=== PATIENT | female | born 1960 | race Caucasian/White ===

== ENCOUNTER 2016-09-26 17:07 | Emergency (ER) | payer SELFPAY ==
[2016-09-26 17:53] LABS: CHLORIDE,CL 106 mmol/L (98-107); SODIUM,NA 142 mmol/L (136-145)
[2016-09-26 18:22] VITALS: BP 190/120
[2016-09-26] MEDS ORDERED: LORazepam 0.5 MG Tab ONE (19:03)
--- NOTE | 2016-09-28 10:33 | ER ---
Date of Service: 09/26/2016 REASON FOR VISIT: Headache and blurred vision. HISTORY: A 55-year-old white female presents ambulatory accompanied by her . She has been a having a severe headache since that is boring and stabbing pain to the right eye. Pain 10/10 at its worst. Headache has been persistent since its onset on . On Wednesday, she started having blurred vision, and droopiness of the right eye and right eyelid. The blurred vision was just in the right eye and sometimes it was triple vision today. Eyes have been tearing. Left eye seems okay. She denies any facial numbness. She had some head cold symptoms last week, but those have cleared. No chest pain. No shortness of breath. No cough. No congestion at this time. No numbness or tingling or weakness in the arms or legs. No focal symptoms reported. does report that she has had similar headaches off and on over the past several months. They have only been lasting about a day at a time, they have not been associated with any eye symptoms. CURRENT MEDICATIONS: None. ALLERGIES: None known. OBJECTIVE: General: She is alert. Vital Signs: Temperature 96.2, pulse is 60 and regular. BP was running in the 180/122 range. Respirations are 16. O2 sats 100%. HEENT: PERRLA. EOMI. TMs are negative. Throat, clear. NECK: Supple. No adenopathy. HEART: Regular rate and rhythm. No murmur heard. LUNGS: Clear to auscultation. ABDOMEN: Soft, nontender. No masses. EXTREMITIES: Warm and dry. No edema. NEUROLOGICAL: Deep tendon reflexes symmetrical. Motor and sensory function is intact. Cranial nerves are intact. LABORATORY DATA: White count 4.3, hemoglobin 13. Electrolytes are normal. Creatinine 0.9. Glucose is 93, magnesium and calcium were normal. LFT's are normal. Noncontrast CT scan of the head was reported as negative by the radiologist. TREATMENT IN EMERGENCY ROOM: She was given high-flow O2 with minimal if any improvement. She states that she has been taking ibuprofen with some improvement. I did contact [facility] [place], Dr. Cook discussed her situation with him. He felt that this was probably not a cluster headache may be more related to trigeminal cephalgia, trigeminal neuralgia. He recommends the patient undergo MRI with or without contrast of the head and a CT angiogram of the head and neck. The patient was apprised of this. ASSESSMENT: 1. Trigeminal neuralgia or trigeminal cephalgia. 2. Cluster headaches, less likely. PLAN: 1. Patient is reassured, she may use ibuprofen for pain. 2. She is given Ativan 0.5 mg 1 at bedtime for the weekend. Hopefully this will help her sleep and improve her headache symptoms. 3. She is advised to see her primary provider on Wednesday and have the above- noted tests scheduled as soon as possible. She is to call or return if any problems or concerns or worsening symptoms. FM: 09/26/2016 19:08:31 MODL: 09/26/2016 23:37:52 /[id number]
== END 2016-09-26 19:03 | disposition home or self-care (01) ==
LOC: VM.ED 17:07
DX: G44.009 Cluster headache syndrome, unspecified, not intractable (principal)
CPT/HCPCS: 36415; 70450; 80053; 83735; 85025; 99284; 99284-GF; A9270-GY